=== PATIENT | female | born 1955 | race Caucasian/White ===

== ENCOUNTER → 2023-10-06 16:14 | Outpatient (REF) | payer BC, SELFPAY ==
[2023-10-06 15:14] LABS: % Basophils 1.2 % (0-2); % Eosinophils 0.6 % (0-6); % Immature Granulocytes 0.1 % (0-0.5); % Monocytes 11.5 % (1.7-9.3); % Neutrophils 41.6 % (42.2-75.2); Absolute Basophils 0.1 10^3/uL (0-0.2); Absolute Eosinophils 0.1 10^3/uL (0-0.7); Absolute Lymphocytes 3.9 10^3/uL (1.2-3.4); Absolute Neutrophils 3.6 10^3/uL (1.4-6.5); Hematocrit 37.9 % (37.0-47.0); Hemoglobin 12.8 g/dL (12.0-16.0); Mean Corp Hgb Conc. 33.8 g/dL (33.0-37.0); Mean Corpuscular Hgb 34.2 pg (27.0-31.0); Mean Corpuscular Volume 101.3 fL (81.0-99.0); Mean Platelet Volume 8.2 fL (7.4-10.4); Platelet Count 407 10^3/uL (130-400); Red Blood Cell Count 3.74 10^6/uL (4.20-5.40); Red Cell Dist. Width 12.7 % (11.5-14.5); White Blood Cell Count 8.6 10^3/uL (4.8-10.8)
[2023-10-06 16:33] LABS: Vitamin D, 25-OH*** 49.3 ng/mL (30-80)
[2023-10-06 17:15] LABS: Folate > 20.0 ng/ml (2.76-20); Vitamin B12 > 1000 pg/ml (239-931)
[2023-10-09 01:59] LABS: Vitamin D 1,25 Dihydroxy 80.5 pg/mL (19.9-79.3)
== END ==
LOC: OIDL 16:14
PROVIDERS: ATTENDING PHYSICIAN Internal Medicine Hematology & Oncology
DX: D50.9 Iron deficiency anemia, unspecified (principal)
CPT/HCPCS: 82306; 82607; 82652; 82746; 85025